=== PATIENT | male | born 1990 | race Two or more races ===

== ENCOUNTER 2025-02-14 13:10 | Emergency (ER) | payer OTHER, SELFPAY ==
[2025-02-14 13:32] VITALS: BP 143/72; PULSE 86; RESP 16; TEMP 37.1; O2SAT 99
--- NOTE | 2025-02-14 13:43 | ED.WOUNDLAC ---
HPI - Wound/Laceration General Chief Complaint: Wound/Laceration Stated Complaint: Laceration to Right Hand Time Seen by Provider: 02/14/25 13:43 Source: patient, RN notes reviewed and old records reviewed Mode of arrival: ambulatory Limitations: no limitations History of Present Illness HPI narrative: 34 year old male accompanied by boss with complaint of laceration to the base of his right thumb which occurred prior to arrival when he was drilling on metal and it slid into his thumb causing laceration. Patient is not up to date on his tetanus. Patient speaks Martiniquais interpretor service used. No acute active bleeding noted, patinet has full mobility of his right thumb with strong right radial pulse. Onset (ago): hour(s) (within past hour prior to arrival) Location: other (right base of thumb) Place: work Patient tetanus UTD: No Treatments prior to arrival: bandage Related Data Allergies Allergy/AdvReac Type Severity Reaction Status Date / Time No Known Allergies Allergy Verified 02/14/25 13:33 Review of Systems Review of Systems: CONSTITUTIONAL: Denies fever, chills, or sweats. CARDIOVASCULAR: Denies chest pain, palpitations, or edema. RESPIRATORY: Denies cough or dyspnea. SKIN: Reports laceration to the base of right thumb tom aspect with full mobility of thumb. bleeding controlled rates pain 5/10 described as soreness MUSCULOSKELETAL: Denies musculoskeletal pain NEUROLOGIC: Denies numbness, or weakness. All systems reviewed & are unremarkable except as noted in HPI and below PMFSH Social History Social History (Updated 02/15/25 @ 21:00 by Temi Steven APRN) Smoking status: Never smoker Living arrangements: with family Gender identity (if verbalized by the patient): Male Comments At time of signature, agree with nursing past medical, surgical, social and family history. There is no relevant family history pertinent to the presenting complaint Exam Narrative: GENERAL: Well-appearing, well-nourished, and in no acute distress. HEAD: Normocephalic, atraumatic. NECK: Supple.no lymphadenopathy CHEST: Clear to auscultation. No respiratory distress.SAO2 99% on room air HEART: Regular rate and rhythm. No murmur heard. Normal peripheral pulses. EXTREMITIES: Normal range of motion. No edema. SKIN: Warm, dry, no rash. Reports 1.5cmlaceration to the base of right thumb tom side with bleeding controlled, full mobility of thumb with sensation and circulation intact see procedure note NEURO: No focal deficits. Alert and oriented x3. Course Course Level of Care: Express Care Visit Vital Signs Vital signs: Vital Signs Temperature 37.1 C 02/14/25 13:32 Pulse Rate 86 02/14/25 13:32 Respiratory Rate 16 02/14/25 13:32 Blood Pressure 143/72 H 02/14/25 13:32 Pulse Oximetry 99 02/14/25 13:32 Oxygen Delivery Room Air 02/14/25 13:32 Temperature 37.1 C 02/14/25 13:32 Pulse Rate 86 02/14/25 13:32 Respiratory Rate 16 02/14/25 13:32 Blood Pressure 143/72 H 02/14/25 13:32 Pulse Oximetry 99 02/14/25 13:32 Oxygen Delivery Room Air 02/14/25 13:32 Procedures Laceration right thumb: Date: 02/14/25 Time: 14:00 Site: hand (base of thumb) Side (If applicable): right Size (cm): 1.5 Description: linear Depth: simple, single layer Local Anesthetic: lidocaine 1% Amount of anesthesia used (mL): 6 Pre-repair: wound explored, irrigated extensively and other (cleansed with wound cleanser and saline) ====== Skin Level ====== Skin layer closed with: nylon Size (cm): 4-0 Number of sutures: 4 Technique: simple, interrupted ====== Subcutaneous Layer ====== ====== Muscle Layer ====== ====== Tendon Layer ====== Dressing: Laceration to the base of right thumb cleansed and irrigated extensively, localized with 6 ml of Lidocaine 1% with Ethilon 4.0 suture used to apply 4 simple interrupted sutures to wound with edges well approximated. Dressing applied of Telfa, 4X4 gauze and kerlix wrap to wound applied with wound care instructions reviewed with understanding verbalized MDM MDM Narrative Medical decision making narrative: Sutures applied to laceration with wound care reviewed with patient and boss and patient placed on oral Cephalexin antibiotic. sutures to be removed in 10 days. Anticipatory guidance and reasons to seek care in ED reviewed with uderstanding voiced. Differential Diagnosis Differential Diagnosis: Differential diagnostic considerations for wound laceration include laceration, abscess, abrasion, avulsion of skin, skin foreign body. Critical Care Time Critical Care Time Critical Care Time: No Discharge Plan Discharge Clinical Impression: Laceration of thumb, right Qualifiers: Encounter type: initial encounter Damage to nail status: without damage Foreign body presence: without foreign body Qualified Code(s): S61.011A - Laceration without foreign body of right thumb without damage to nail, initial encounter Patient Disposition: Home Condition: Stable Instructions: Antibiotic Form, Laceration (ED) Additional Instructions: Keep the area clean and dry No continuous water contact like dishes or swimming You may bathe and wash you hair caution with hair products or lotions bacitracin ointment to wound once daily watch for any infection--redness, swelling, drainage follow up with PCP for suture/staple in removal 10 days recheck with PCP if further concerns or problems antibiotic as prescribed take all doses If your symptoms persist, change or worsen significantly before you can contact your personal physician then please, without delay, go to the emergency department for further evaluation. Follow-up with PCP in 7-10 days or sooner if needed Follow up with PCP soon in regards to your blood pressure which is elevated above threshold for referral. Blood pressure above 120/80 may indicate pre-hypertension. 133/64 Patient Language: Martiniquais Prescriptions: New cephalexin 500 mg capsule 500 mg PO Q8H Qty: 21 0RF Follow-up/Referrals: PHYSICIAN,SCRAP IRON LOADER [Primary Care Provider, Internal Medicine] Time of Disposition: 14:18 Quality [place] Coma Scale Eyes: Open Verbal: Oriented and Alert Motor: Follows Commands Blake Coma Total Score: 15
[2025-02-14] MEDS: TETANUS,DIPHTHERIA,AC PERTUSSIS ADULT (0.5 ML) BOOSTRIX IM (13:52)
[2025-02-14] MEDS: LIDOCAINE 1% LOCAL INJ 2 ML AMPUL 6 ML INFILTRATE (13:56)
--- OUTSIDE RECORDS SUMMARY | 2025-02-14 15:19 | XMS_ITS | Clinical Summary ---
Author Organization [facility] Address [address] [place] [address] Phone Care Team Providers Care Mother Helper Name Role Phone Unavailable Primary Care Provider Unavailabl e Allergies No known active allergies Medications tamsulosin (FLOMAX) 0.4 mg capsule Take 1 Capsule (0.4 mg) by mouth daily. 15 Capsule 01/10/2025 6:24 PM TAILER OUT 01/10/2025 Active HYDROcodone-deborah taminophen (NORCO) 5-325 mg tabletIndicatio ns:Ureteropelvi c junction calculus Take 1 Tablet by mouth every 6 hours as needed for Pain. Max Daily Amount: 4 Tablets 20 Tablet 01/10/2025 3:53 PM TAILER OUT 01/10/2025 01/16/20 25 Encounters Date Type Department Care Team Description 02/07/2025 External Device Data [facility] ABSTRACTION Provider, Abstract 02/07/2025 External Device Data [facility]STRACTION Provider, Abstract 02/07/2025 External Device Data [facility]STRACTION Provider, Abstract 01/27/2025 Patient Outreach [address] [address] Sonal Youssef Financial Assistance Program; Insurance Coverage 01/25/[address] [address] Sonal Youssef Healthcare Access 01/17/2025 External Device Data [facility] ABSTRACTION Provider, Abstract 01/17/2025 External Device Data [facility] ABSTRACTION Provider, Abstract 01/17/2025 External Device Data [facility] ABSTRACTION Provider, Abstract 01/12/2025 Patient Outreach [facility] [address] [place] [address] Sonal Youssef Healthcare Access; Financial Assistance Program; Insurance Coverage 01/10/2025 10:39 AM TAILER OUT - 01/10/2025 4:26 PM TAILER OUT Hospital Encounter [facility] Emergency Clinical Decision Unit [address] [place] [address] Celso Larson DO Ullery, Brian, MD Ureteropelvic junction calculus (Primary Dx) Discharge Disposition: Home or Self Care 01/10/2025 Orders Only [facility]rology at the [facility] [address] [place] [address] Angela Dean PA-C Nephrolithiasis (Primary Dx) 01/10/2025 Patient Outreach [facility] [address] [place] [address] Sonal Youssef Healthcare Access from Last 3 Months Social History Tobacco Use Types Packs/Day Years Used Date Smoking Tobacco: Never Assessed Feeling Safe Answer Date Recorded Are you in a relationship wi th someone who hurts you emotionally and/or physically? No 01/10/2025 Sex and Gender Information Value Date Recorded Sex Assigned at Not on file Legal Sex Male 10:13 AM TAILER OUT Gender Identity Not on file Sexual Orientation Not on file Last Filed Vital Signs Vital Sign Reading Time Taken Comments Blood Pressure 129/88 01/10/2025 4:20 PM TAILER OUT Pulse 85 01/10/2025 4:20 PM TAILER OUT Temperature 37.2 C (99 F) 01/10/2025 10:19 AM TAILER OUT Respiratory Rate 16 01/10/2025 2:16 PM TAILER OUT Oxygen Saturation 98% 01/10/2025 4:20 PM TAILER OUT Inhaled Oxygen Concentration - - Weight 77.1 kg (170 lb) 01/10/2025 10:19 AM TAILER OUT Height - - Body Mass Index - - Plan of Treatment Health Maintenance Due Date Last Done Comments DTAP/TDAP/TD VACCINES (1 - Tdap) 2008 HEPATITIS B VACCINES (1 of 3 - 19+ 3-dose series) 08/2008 INFLUENZA VACCINE (#1) 2024 HPV VACCINES (No Doses Required) Completed Procedures Procedure Name Priority Date/Time Associated Diagnosis Comments CT ABDOMEN PELVIS WO CONTRAST Stat 01/10/2025 1:05 PM TAILER OUT URINALYSIS W/REFLEX MICROSCOPIC Stat 01/10/2025 11:48 AM TAILER OUT URINE CULTURE Stat 01/10/2025 11:48 AM TAILER OUT COMPREHENSIVE METABOLIC PANEL Stat 01/10/2025 11:35 AM TAILER OUT CBC WITH DIFFERENTIAL Stat 01/10/2025 11:35 AM TAILER OUT from Last 3 Months Results * CT ABDOMEN PELVIS WO CONTRAST (01/10/2025 1:05 PM TAILER OUT) Anatomical Region Laterality Modality Abdomen Computed Tomogra phy 01/10/2025 1:05 PM TAILER OUT Impressions 01/10/2025 1:13 PM TAILER OUT IMPRESSION: Two left UVJ calculi with mild to moderate left hydroureteronephrosis. The larger distal calculus measures 4 mm. DICTATION LOCATION: [address] 01/10/2025 1:13 PM TAILER OUT EXAMINATION: CT ABDOMEN PELVIS WO CONTRAST HISTORY: Flank pain, stone disease suspected TECHNIQUE: Computed tomography of the abdomen and pelvis was performed without contrast according to standard protocol. The examination was performed with the adjustment of mA according to the patient size and/or the use of Iterative Reconstruction Technique. COMPARISON: None available. FINDINGS: Evaluation is limited by lack of intravenous contrast. LUNG BASES: No focal consolidation, mass or nodule visualized lung bases. No pleural or pericardial effusion. LIVER: Within normal limits. BILE DUCTS: Nondilated. GALLBLADDER: Within normal limits. SPLEEN: Within normal limits. PANCREAS: Normal contour. No duct dilation or inflammation. ADRENALS: Normal. KIDNEYS/URETERS: [id number] left hydroureteronephrosis to the level of the left UVJ where there are two calculi. The more distal measures 4 mm and the calculus just behind this 3 mm. No additional ureteral calculus is seen. Urinary bladder appears unremarkable. BOWEL: Stomach appears normal. No small bowel obstruction. No significant diverticular disease or other colonic abnormality. PERITONEUM/RETROPERITONEUM: No ascites, free air or enlarged mesenteric/retroperitoneal lymph nodes. VESSELS: Within normal limits. ABDOMINAL WALL: Small fat filled umbilical hernia. BONES: No acute fracture. No suspicious osseous lesions. Procedure Note Steffany Velasquez MD - 01/10/2025 EXAMINATION: CT ABDOMEN PELVIS WO CONTRAST HISTORY: Flank pain, stone disease suspected TECHNIQUE: Computed tomography of the abdomen and pelvis was performed without contrast according to standard protocol. The examination was performed with the adjustment of mA according to the patient size and/or the use of Iterative Reconstruction Technique. COMPARISON: None available. FINDINGS: Evaluation is limited by lack of intravenous contrast. LUNG BASES: No focal consolidation, mass or nodule visualized lung bases. No pleural or pericardial effusion. LIVER: Within normal limits. BILE DUCTS: Nondilated. GALLBLADDER: Within normal limits. SPLEEN: Within normal limits. PANCREAS: Normal contour. No duct dilation or inflammation. ADRENALS: Normal. KIDNEYS/URETERS: Rmje-if-agczvjpk left hydroureteronephrosis to the level of the left UVJ where there are two calculi. The more distal measures 4 mm and the calculus just behind this 3 mm. No additional ureteral calculus is seen. Urinary bladder appears unremarkable. BOWEL: Stomach appears normal. No small bowel obstruction. No significant diverticular disease or other colonic abnormality. PERITONEUM/RETROPERITONEUM: No ascites, free air or enlarged mesenteric/retroperitoneal lymph nodes. VESSELS: Within normal limits. ABDOMINAL WALL: Small fat filled umbilical hernia. BONES: No acute fracture. No suspicious osseous lesions. IMPRESSION: Two left UVJ calculi with mild to moderate left hydroureteronephrosis. The larger distal calculus measures 4 mm. DICTATION LOCATION: Location - [facility] us Celso Larson DO CT ORDERABLES Final Result * (ABNORMAL) URINALYSIS WITH REFLEX MICROSCOPIC (01/10/2025 11:48 AM TAILER OUT) COLOR UA Yellow Pale to Dark Yellow 01/10/2025 12:13 PM TAILER OUT [facility] CLARITY UA Clear Clear 01/10/2025 12:13 PM TAILER OUT [facility] SPECIFIC GRAVITY UA 1.012 1.003 - 1.035 01/10/2025 12:13 PM [facility] PH UA 6.0 5.0 - 8.0 01/10/2025 12:13 PM [facility] LEUKOCYTE ESTERASE UA Negative Negative 01/10/2025 12:13 PM [facility] NITRITE UA Negative Negative 01/10/2025 12:13 PM [facility] PROTEIN UA Negative Negative 01/10/2025 12:13 PM [facility] GLUCOSE UA Negative Negative 01/10/2025 12:13 PM TAILER OUT [facility] KETONES UA Negative Negative 01/10/2025 12:13 PM [facility] [employer] [facility] UROBILINOGEN UA Normal <2.0 mg/dL 12:13 PM [facility] BILIRUBIN UA Negative Negative 01/10/2025 12:13 PM [facility] BLOOD UA 2+(A) Negative 01/10/2025 12:13 PM [facility] WBC UA 0-2 0 - 2 /hpf 01/10/2025 12:13 PM [facility] RBC UA 6-10(A) 0 - 2 /hpf 01/10/2025 12:13 PM [facility] BACTERIA UA Negative Negative /hpf 01/10/2025 12:13 PM [facility] APR LABORATORY [facility] EPITHELIAL CELLS, URINE 0-5 0 - 5 /hpf 01/10/2025 12:13 PM [facility] Urine URINE SPECIMEN OBTAINED BY CLEAN CATCH PROCEDURE / Unknown Collection / Unknown 01/10/2025 11:48 AM TAILER OUT 01/10/2025 11:59 AM TAILER OUT Celso Larson DO URINE ORDERABLES Final Result [facility]ATORY SERVICES - [facility] CLIA# [id number] [address] [place] [address] * URINE CULTURE (01/10/2025 11:48 AM TAILER OUT) CULTURE No growth at 24 hours 01/11/2025 11:39 AM [facility] [employer] [facility] Urine URINE SPECIMEN OBTAINED BY CLEAN CATCH PROCEDURE / Unknown Collection / Unknown 01/10/2025 11:48 AM TAILER OUT 01/10/2025 11:59 AM TAILER OUT Garo Guallpa MD MICROBIOLOGY - GENERAL ORDERABLE S Final Result [employer] [facility]# [id number] [address] [place] [address] * (ABNORMAL) CBC WITH DIFFERENTIAL (01/10/2025 11:35 AM TAILER OUT) WBC 8.6 4.0 - 9.8 K/uL 01/10/2025 12:06 PM TAILER OUT [employer] [facility] RBC 5.22 4.50 - 5.40 M/uL 01/10/2025 12:06 PM [employer] [facility] HEMOGLOBIN 15.7 13.6 - 16.5 g/dL 01/10/2025 12:06 PM TAILER OUT [employer] [facility] HEMATOCRIT 47.3 40.0 - 48.0 % 01/10/2025 12:06 PM [employer] [facility] MCV 90.6 82.0 - 99.0 fL 01/10/2025 12:06 PM [employer] [facility] MCH 30.1 27.2 - 32.6 pg 01/10/2025 12:06 PM [employer] SERVICES [facility] MCHC 33.2 31.5 - 35.5 g/dL 01/10/2025 12:06 PM [employer] [facility] RDW 12.1 11.5 - 14.5 % 01/10/2025 12:06 PM [employer] SERVICES [facility] RDW-STDEV 39.9 37.1 - 48.7 fL 01/10/2025 12:06 PM TAILER OUT [facility] PLATELETS 258 140 - 350 K/uL 01/10/2025 12:06 PM [facility] APR [facility] MPV 10.4 9.3 - 12.4 fL 01/10/2025 12:06 PM [facility] NEUTROPHILS 65 % 01/10/2025 12:06 PM [facility] LYMPHOCYTES 24 % 01/10/2025 12:06 PM [facility] MONOCYTES 8 % 01/10/2025 12:06 PM [facility] EOSINOPHILS 1 % 01/10/2025 12:06 PM [facility] [employer] [facility] BASOPHILS 1 % 01/10/2025 12:06 PM [facility] IMMATURE GRANULOCYTES 1 % 01/10/2025 12:06 PM [facility] Comment:IG (Immature Granulo cyte) count includes Metamyelocytes, Myelocytes, and Promyelocytes NEUTROPHIL ABSOLUTE 5.61 1.90 - 7.00 K/uL 01/10/2025 12:06 PM [facility] LYMPHOCYTE ABSOLUTE 2.07 0.70 - 4.50 K/uL 01/10/2025 12:06 PM [facility] [employer] [facility] MONOCYTE ABSOLUTE 0.70 0.10 - 1.30 K/uL 01/10/2025 12:06 PM [facility] LABORATORY [facility] EOSINOPHIL ABSOLUTE 0.12 0.00 - 0.70 K/uL 01/10/2025 12:06 PM [facility] [employer] LABORATORY [facility] BASOPHILS ABSOLUTE 0.04 0.00 - 0.20 K/uL 01/10/2025 12:06 PM [facility] [employer] [facility] - . [facility] IMMATURE GRANULOCYTES ABSOLUTE 0.04(H) 0.00 - 0.03 K/uL 01/10/2025 12:06 PM [facility] [employer] LABORATORY [facility] - . [facility] Blood Venipuncture / Unknown 01/10/2025 11:35 AM TAILER OUT 01/10/2025 11:59 AM TAILER OUT us Celso Larson DO HEMATOLOGY ORDERABLES Final Resu lt [facility] JODY# [id number] [address] [place] [address] * (ABNORMAL) COMPREHENSIVE METABOLIC PANEL (01/10/2025 11:35 AM TAILER OUT) Pathologist [facility] SODIUM 140 136 - 145 mmol/L 01/10/2025 12:37 PM [facility] [employer] [facility] POTASSIUM 3.6 3.5 - 5.0 mmol/L 01/10/2025 12:37 PM [facility] [employer] [facility] CHLORIDE 104 98 - 107 mmol/L 01/10/2025 12:37 PM [facility] [employer] [facility] CO2 26 22 - 29 mmol/L 01/10/2025 12:37 PM [facility] [employer] [facility] CALCIUM 9.3 8.6 - 10.2 mg/dL 01/10/2025 12:37 PM [facility] [employer] [facility] BUN 9 6 - 20 mg/dL 01/10/2025 12:37 PM [facility] [employer] [facility] CREATININE 0.92 0.67 - 1.17 mg/dL 01/10/2025 12:37 PM [facility] [employer] [facility] GLUCOSE 100(H) 74 - 99 mg/dL 01/10/2025 12:37 PM [facility] [employer] [facility]AT[facility] TOTAL PROTEIN 7.5 6.7 - 8.6 g/dL 01/10/2025 12:37 PM [facility] [employer] [facility] ALBUMIN 4.4 3.5 - 5.2 g/dL 01/10/2025 12:37 PM [facility] [employer] [facility] BILIRUBIN TOTAL 0.5 0.0 - 1.2 mg/dL 01/10/2025 12:37 PM [facility] [employer] [facility]ATORY [facility] ALKALINE PHOSPHATASE 77 40 - 129 U/L 01/10/2025 12:37 PM [facility] [employer] [facility] AST 21 <41 U/L 01/10/2025 12:37 PM TAILER OUT [employer] [facility] ALT 17 <42 U/L 01/10/2025 12:37 PM [facility] [employer] [facility] GFR >60 >=60 mL/min/1.7 3 sq meter 01/10/2025 12:37 PM TAILER OUT [facility] Comment:eGFR calculated with 2020 CKD-EPI equation. Vegetarian diet, extremely high or low muscle mass, and may affect results. Cystatin C with Glomerular Filtration Rate is a suitable alternative for these patients. ANION GAP 10 8 - 16 mmol/L 01/10/2025 12:37 PM TAILER OUT [facility] Blood Venipuncture / Unknown 01/10/2025 11:35 AM TAILER OUT 01/10/2025 11:59 AM TAILER OUT Narrative [facility] - 01/10/2025 12:37 PM TAILER OUT Samples containing indocyanine green cause interferences on Total and/or Direct Bilirubin and must not be measured. us Celso Larson DO CHEMISTRY ORDERABLES Final Resul t [facility] [employer] [facility]# [id number] [address] [place], [place] [id number] from Last 3 Months Insurance [employer] (INTERNAL) [facility] [employer] Plans
== END 2025-02-14 14:28 | disposition home or self-care (01) ==
PROVIDERS: Emergency Provider Registered Nurse
DX: S61.011A Laceration without foreign body of right thumb without damage to nail, initial encounter (principal); W29.8XXA Contact with other powered hand tools and household machinery, initial encounter; Z23 Encounter for immunization
CPT/HCPCS: 12001; 90471; 90715; 99203; G0463; J2003